=== PATIENT | male | born 1940 | race Caucasian/White ===

== ENCOUNTER → 2017-02-04 | Outpatient (CLI) | payer OTHER | END | disposition home or self-care (01) | LOC: GMAJ 10:18 | PROVIDERS: ATTEND Family Medicine | DX: M06.9 Rheumatoid arthritis, unspecified (principal) ==

== ENCOUNTER → 2017-06-06 | Outpatient (CLI) | payer OTHER ==
--- NOTE | 2017-06-06 18:50 | US ---
EXAM DESCRIPTION: Venous,Lower Extremity RT CLINICAL HISTORY: RIGHT LOWER LIMB EDEMA COMPARISON: None Available. TECHNIQUE: Right lower extremity venous duplex FINDINGS: There is no DVT identified. There is normal color flow observed with good flow augmentation. All deep veins compress normally. IMPRESSION: Negative for DVT Electronically signed by: Peewee Grande MD 06/06/2017 6:49 PM CDT
== END | disposition home or self-care (01) ==
LOC: US 09:48
PROVIDERS: ATTEND Family Medicine
DX: R60.0 Localized edema (principal)

== ENCOUNTER → 2017-09-26 | Outpatient (CLI) | payer OTHER | END | disposition home or self-care (01) | LOC: GMAJ 11:23 | PROVIDERS: ATTEND Family Medicine | DX: Z12.5 Encounter for screening for malignant neoplasm of prostate (principal) ==

== ENCOUNTER → 2018-01-19 | Outpatient (CLI) | payer OTHER ==
--- NOTE | 2018-01-19 10:37 | RAD ---
EXAM DESCRIPTION: Knee,Right 2 or More Views CLINICAL HISTORY: 77 years, Male, PAIN COMPARISON: None TECHNIQUE: Three views of the right knee including standing views FINDINGS: No fracture or dislocation. Bones appear normally mineralized with normal trabecular pattern. Narrowed appearance of the medial compartment on frontal view. Minimal medial and lateral joint line spurring with spurring in the intercondylar notch. Lateral view shows normal position of the patella. Mild posterior patellar spurring. Small to moderate suprapatellar knee joint effusion. Normal contour of quadriceps and patellar tendons. No abnormal patellar tilt or subluxation on patellar sunrise view. Prominent posterior spurring of the patella is seen laterally. IMPRESSION: Degenerative changes as described. Electronically signed by: Hugh Terrell MD 01/19/2018 10:36 AM CDT
--- NOTE | 2018-01-19 10:38 | RAD ---
EXAM DESCRIPTION: Pelvis CLINICAL HISTORY: 77 years Male, PAIN COMPARISON: None. TECHNIQUE: Frontal x-ray view of the pelvis FINDINGS: Mild degenerative narrowing of the inferomedial hip joints with acetabular marginal osteophyte formation. Mild spurring at the femoral head neck junctions. Enthesopathy at the ischia and iliac wings is noted bilaterally. No fracture of the bones of the pelvic ring. Degenerative changes are seen at the SI joints. Sacrum appears intact. IMPRESSION: Degenerative changes as described. Electronically signed by: Hugh Terrell MD 01/19/2018 10:37 AM CDT
== END | disposition home or self-care (01) ==
LOC: RAD 08:08
PROVIDERS: ATTEND Orthopaedic Surgery
DX: M25.561 Pain in right knee (principal); M25.551 Pain in right hip

== ENCOUNTER → 2018-04-17 | Outpatient (CLI) | payer OTHER ==
--- NOTE | 2018-04-17 09:07 | RAD ---
EXAM DESCRIPTION: Fingers,Left CLINICAL HISTORY: 77 years Male, PAIN IN left FINGERS COMPARISON: None. 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 Lesser degenerative narrowing of the PIP joint is present. No acute fracture. Degenerative spurring is prominent ventrally and dorsally on the lateral view. 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 Electronically signed by: Hugh Terrell MD 04/17/2018 9:06 AM CDT
== END ==
LOC: RAD 08:47
PROVIDERS: ATTEND Orthopaedic Surgery
DX: M79.645 Pain in left finger(s) (principal)

== ENCOUNTER → 2018-04-28 | Outpatient (CLI) | payer OTHER ==
--- NOTE | 2018-04-28 13:21 | US ---
THYROID ULTRASOUND CLINICAL INFORMATION: Thyroid nodule TECHNIQUE: Sonography of the thyroid glands was performed. Nodules are measured. COMPARISON: None FINDINGS: Thyroid size: Right thyroid lobe measures 4.5 x 2 x 2 cm. Left thyroid lobe measures 4.7 x 1.6 x 1.5 cm. Texture: Hyperechoic gland with coarse in texture. The normal echogenic parenchyma is interrupted by multiple nodular lesions. Estimated total number of nodules >/=1 cm: 2 Nodules Right lobe In the upper right lobe anteriorly, a hypoechoic inhomogeneous nodule measures 0.8 x 0.5 x 0.7 cm. At this size, this can be followed. Normal color flow in the gland without hyperemia of the nodule. In the lower right lobe posteriorly, another similar nodule is inhomogeneous and somewhat hypoechoic and measures 0.7 x 1 x 0.8 cm. This can be followed. No internal microcalcifications. Thyroid isthmus appears normal measuring 3 mm. Left lobe The largest nodule is seen in the upper left thyroid lobe which measures 2 x 1.3 x 1.2 cm. Fine-needle aspiration biopsy with ultrasound guidance is recommended for a nodule of this size. Positive color flow is seen within the nodule, similar to the adjacent thyroid tissue. In the inferior left thyroid lobe a hypoechoic inhomogeneous nodule is seen which measures 1.2 x 0.8 x 0.9 cm. No definite internal calcifications to suggest the need for biopsy at this size. While the upper pole left thyroid nodule could be further evaluated with biopsy, the other nodules could be followed with repeat sonography in one year. Impression: Bilateral thyroid nodules, the largest in the upper pole of the left thyroid lobe. Further evaluation with biopsy is recommended. Electronically signed by: Hugh Terrell MD 04/28/2018 1:19 PM CDT
== END ==
LOC: US 08:57
PROVIDERS: ATTEND Family Medicine
DX: E04.1 Nontoxic single thyroid nodule (principal)

== ENCOUNTER → 2018-12-20 | Day surgery (SDC) | payer OTHER ==
[~2018-12-20] MED LIST: LACTATED RINGERS 1,000 ML ONE; LIDOCAINE 1% 10 ML VIAL INJ ONE; PROPOFOL 200 MG/20 ML VIAL IV ONE
--- NOTE | 2018-12-20 13:26 | OP ---
DATE OF PROCEDURE: 12/20/18 DATE OF PROCEDURE: 12/20/18 PREPROCEDURE DIAGNOSIS: 1. Colorectal cancer screening. POSTPROCEDURE DIAGNOSIS: 1. Severe diverticulosis in the entire colon. PROCEDURE: 1. Colonoscopy. SURGEON: Bryon Mayes MD COMPLICATIONS: No immediate complications. SEDATION: The patient was sedated via IV propofol by the Anesthesia Department. CONSENT: Prior to the procedure, risks, benefits and alternatives to the therapy were discussed with the patient. The risks included bleeding, infection, perforation and . The patient agreed to the procedure and signed a consent. PREPROCEDURE ANESTHESIA ASSESSMENT: Mallampati class type 2, ASA grade assessment type 2. Throughout the procedure, the patient's vital signs were closely monitored. PROCEDURE: The patient was placed in the left lateral decubitus position and a rectal examination was performed. The rectal examination was within normal limits. The Olympus colonoscope was passed in the anus, rectum, traversing the colon to the level of the cecum as identified by the appendiceal orifice and the ileocecal valve. The scope was retracted and the mucosa was visualized. The entirety of the exam was performed under direct visualization. Preparation quality was excellent. The withdrawal time was greater than 6 minutes. The patient tolerated the procedure well. FINDINGS: 1. Diverticulosis was found throughout the colon. Significantly, however, severe diverticulosis was found in the sigmoid and descending colon. 2. The rest of the examination was entirely normal. RECOMMENDATION: 1. Return the patient home. 2. Resume previous diet favoring high-fiber foods. 3. Start Citrucel 2 tablespoons a day. 4. Repeat colonoscopy in 10 years. 5. Primary care physician may check FIT/Cologuard in 3 to 5 years' time. 6. Return to referring physicians office as previously scheduled. 7. Return to my office p.r.n. 8. Findings were discussed with the patient and family members. #[id number] MTDD
[2018-12-20 14:37] VITALS: BP 134/78; TEMP 97.1; O2SAT 98
== END ==
LOC: AMB 05:33
PROVIDERS: ATTEND Internal Medicine Gastroenterology
DX: Z12.11 Encounter for screening for malignant neoplasm of colon (principal); K57.30 Diverticulosis of large intestine without perforation or abscess without bleeding; I10 Essential (primary) hypertension; G47.33 Obstructive sleep apnea (adult) (pediatric); M35.3 Polymyalgia rheumatica; K21.9 Gastro-esophageal reflux disease without esophagitis; Z86.010 Personal history of colon polyps; Z91.048 Other nonmedicinal substance allergy status; Z79.01 Long term (current) use of anticoagulants; Z79.899 Other long term (current) drug therapy
CPT/HCPCS: 00812; G0105; J3490; J7120

== ENCOUNTER 2019-02-07 15:22 | Emergency (ER) | payer OTHER ==
[2019-02-07 15:50] VITALS: TEMP 97.1
--- NOTE | 2019-02-07 16:12 | ED.PDOC ---
History of Present Illness - General Chief Complaint: General Stated Complaint: weakness, malaise, post hernia repair Time Seen by Provider: 02/07/19 15:42 Source: patient, RN notes reviewed, Vital Signs reviewed, family - History of Present Illness Initial Comments: s/p hiatal hernia surgery a week ago continues to feel fatigued & isn't sure he should be feeling this tired. Has been on a liquid diet. No complications with his wounds or unusual pain. His is concerned that he isn't engaging ("tracking") in conversations with her. He says he isn't in the mood to be talking today. No focal neuro symptoms. Timing/Duration: 1 week Severity: moderate Improving Factors: nothing Worsening Factors: nothing Associated Symptoms: denies symptoms Allergies/Adverse Reactions: Allergies NO KNOWN ALLERGY Allergy (Verified 02/07/19 15:27) Home Medications: Ambulatory Orders Fenofibrate [Tricor] 145 mg PO DAILY 12/13/18 RX: Amlodipine Besylate 10 mg PO DAILY 12/13/18 RX: Finasteride 5 mg PO DAILY 12/13/18 RX: Gabapentin 100 mg PO BEDTIME 12/13/18 RX: Leflunomide 10 mg PO DAILY 12/13/18 RX: Metoprolol Tartrate 12.5 mg PO BID 12/13/18 RX: Prednisone 5 mg PO DAILY 12/13/18 Rivaroxaban [Xarelto] 10 mg PO DAILY 12/13/18 Ranitidine HCl [Ranitidine 75] 75 mg PO BID 02/07/19 Review of Systems - Review of Systems Constitutional: States: no symptoms reported EENTM: States: no symptoms reported Respiratory: States: no symptoms reported Cardiology: States: no symptoms reported Gastrointestinal/Abdominal: States: no symptoms reported Genitourinary: States: no symptoms reported Musculoskeletal: States: no symptoms reported Skin: States: no symptoms reported Neurological: States: see HPI Hematologic/Lymphatic: States: no symptoms reported Past Medical History (General) - Patient Medical History Hx Stroke: No Hx Cardiac Disorders: Yes - atrial fib, ablation x2 Hx Congestive Heart Failure: No Hx Hypertension: Yes Hx Thyroid Disease: No Hx Diabetes: No Hx MRSA: No Surgical History: appendectomy, other - Social History Hx Tobacco Use: No Family Medical History - Family History Father Family History: Unknown Physical Exam - Physical Exam General Appearance: Alert, Comfortable, No apparent distress, Other - sitting on the side of the bed reading a book Eye Exam: bilateral normal Ears, Nose, Throat: hearing grossly normal, normal ENT inspection Neck: full range of motion, supple, normal inspection Respiratory: lungs clear, normal breath sounds, no respiratory distress Cardiovascular/Chest: regular rate, rhythm, no edema, no gallop Gastrointestinal/Abdominal: soft, no organomegaly, other - operative sites appear to be healing normally Extremity: normal range of motion, normal inspection, no pedal edema, normal capillary refill Neurologic: db2 developer II-XII nml as tested, no motor/sensory deficits, alert, normal mood/affect, oriented x 3 Skin Exam: normal color, warm/dry Progress - Progress Progress: 02/07/19 18:57 Spoke with his surgeon's nurse. They will call him tomorrow. - Results/Orders Results/Orders: BUN:Cr 22 Hgb 12 - EKG/XRAY/CT EKG: Sinus, no ST T wave changes - NSR @ 63; nml axis, intervals, QRS, ST segments & T waves - Consult/PCP Time Called: 16:32 Consult/PCP: Dr. Doan - his surgeon Departure - Departure Clinical Impression: Weakness Time of Disposition: 16:34 Disposition: Discharge to Home or Self Care Condition: Good Departure Forms: ED Discharge - Pt. Copy, Patient Portal Self Enrollment Home Medications: Ambulatory Orders Fenofibrate [Tricor] 145 mg PO DAILY 12/13/18 RX: Amlodipine Besylate 10 mg PO DAILY 12/13/18 RX: Finasteride 5 mg PO DAILY 12/13/18 RX: Gabapentin 100 mg PO BEDTIME 12/13/18 RX: Leflunomide 10 mg PO DAILY 12/13/18 RX: Metoprolol Tartrate 12.5 mg PO BID 12/13/18 RX: Prednisone 5 mg PO DAILY 12/13/18 Rivaroxaban [Xarelto] 10 mg PO DAILY 12/13/18 Ranitidine HCl [Ranitidine 75] 75 mg PO BID 02/07/19 Additional Instructions: Dr. Doan or his nurse will call you tomorrow.
[2019-02-07 16:45] VITALS: BP 142/76; O2SAT 98
== END 2019-02-07 16:45 | disposition home or self-care (01) ==
LOC: ER 15:22
DX: R53.1 Weakness (principal); I48.91 Unspecified atrial fibrillation; I10 Essential (primary) hypertension; Z98.890 Other specified postprocedural states; Z79.899 Other long term (current) drug therapy

== ENCOUNTER → 2019-02-15 | Outpatient (CLI) | payer OTHER | LOC: SL 20:17 | PROVIDERS: ATTEND Family Medicine | DX: G47.33 Obstructive sleep apnea (adult) (pediatric) (principal); I10 Essential (primary) hypertension ==

== ENCOUNTER 2019-03-30 10:05 | Emergency (ER) | payer OTHER ==
--- NOTE | 2019-03-30 10:34 | ED.PDOC ---
History of Present Illness - General Chief Complaint: GI Problem Time Seen by Provider: 03/30/19 10:29 Information Source: patient - History of Present Illness Initial Comments: DIARRHEA X ONE WEEK, APPROX 5 EPISODES PERDAY ASSOCIATED WITH ABDOMINAL CRAMPS. 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 DENIES ANY FEVER, VOMITING SHAKES OR CHILLS. Abdominal Pain Onset Location: generalized abdomen Pain Radiation: no radiation Quality: mild Review of Systems - Review of Systems Constitutional: States: no symptoms reported EENTM: States: no symptoms reported Respiratory: States: no symptoms reported Cardiology: States: no symptoms reported Gastrointestinal/Abdominal: States: abdominal pain, diarrhea Musculoskeletal: States: no symptoms reported Skin: States: no symptoms reported Neurological: States: no symptoms reported Endocrine: States: no symptoms reported Hematologic/Lymphatic: States: no symptoms reported Past Medical History (General) - Patient Medical History Hx Seizures: No Hx Stroke: No Hx Dementia: No Hx Asthma: No Hx of COPD: No Hx Cardiac Disorders: Yes - A-Fib Hx Congestive Heart Failure: No Hx Pacemaker: No Hx Hypertension: Yes Hx Thyroid Disease: No Hx Diabetes: No Hx Gastroesophageal Reflux: No Hx Renal Disease: No Hx Cancer: No Hx of HIV: No Hx Hepatitis C: No Hx MRSA: No Surgical History: noncontributory, other - Vaccination History Hx Tetanus, Diphtheria Vaccination: Yes Hx Influenza Vaccination: Yes Hx Pneumococcal Vaccination: Yes Immunizations Up to Date: Yes - Social History Hx Tobacco Use: No Hx Alcohol Use: No Hx Substance Use: No Hx Substance Use Treatment: No Hx Depression: No Feels Threatened In Home Enviroment: No Feels Threatened In a Relationship: No Hx Physical Abuse: No Hx Emotional Abuse: No Hx Suspected Abuse: No - Triage Comment ED Triage Comment: Pt c/o diarrhea for 5 days. Family Medical History - Family History Father Family History: Unknown Living Status: Hx Family Hypertension: Yes Hx Cardiac Disease: Yes Physical Exam - Physical Exam General Appearance: Alert, Well Developed, Well Groomed, Well Hydrated, Well N ourished Eyes, Ears, Nose, Throat Exam: PERRL/EOMI Neck: non-tender Respiratory: chest non-tender Cardiovascular/Chest: normal peripheral pulses, regular rate, rhythm, no edema, no gallop, no JVD Gastrointestinal/Abdominal: normal bowel sounds Extremity: normal range of motion Neurologic: no motor/sensory deficits Progress - Progress Progress: 03/30/19 14:55 FINALLY GOT A STOOL SAMPLE-WAITING FOR RESULTS - Results/Orders Results/Orders: 03/30/19 14:01 CLOSTRIDIUM DIFFICILE AG/TOXIN Stat Fecal Leukocyte [FECAL WBC LEUKO EZ OLYA] Stat STOOL CULTURE Stat CRYPTOSPORIDIA AG,STOOL Stat Laboratory Results WBC 4.4 K/mm3 (4.8-10.8) L 03/30/19 10:44 RBC 3.62 M/mm3 (4.70-6.10) L 03/30/19 10:44 Hgb 11.5 gm/dL (14.0-18.0) L 03/30/19 10:44 Hct 34.5 % (42.0-52.0) L 03/30/19 10:44 MCV 95.3 fl (80.0-94.0) H 03/30/19 10:44 MCH 31.9 pg (27.0-31.0) H 03/30/19 10:44 MCHC 33.5 g/dL (33.0-37.0) 03/30/19 10:44 RDW 14.5 % (11.5-14.5) 03/30/19 10:44 Plt Count 228 K/mm3 (130-400) 03/30/19 10:44 MPV 8.9 fl (7.40-10.4) 03/30/19 10:44 Absolute Neuts (auto) 3.40 K/uL (1.8-6.8) 03/30/19 10:44 Absolute Lymphs (auto) 0.40 K/uL (1.0-3.4) L 03/30/19 10:44 Absolute Monos (auto) 0.50 K/uL (0.2-0.8) 03/30/19 10:44 Absolute Eos (auto) 0.00 K/uL (0.0-0.4) 03/30/19 10:44 Absolute Basos (auto) 0.00 K/uL (0.0-0.1) 03/30/19 10:44 Neutrophils % 77.1 % (42.0-78.0) 03/30/19 10:44 Lymphocytes % 10.0 % (20.0-50.0) L 03/30/19 10:44 Monocytes % 12.1 % (2.0-9.0) H 03/30/19 10:44 Eosinophils % 0.5 % (1.0-5.0) L 03/30/19 10:44 Basophils % 0.3 % (0.0-2.0) 03/30/19 10:44 Sodium 139 mmol/L (135-145) 03/30/19 10:44 Potassium 4.2 mmol/L (3.6-5.0) 03/30/19 10:44 Chloride 106 mmol/L (101-111) 03/30/19 10:44 Carbon Dioxide 26 mmol/L (21-31) 03/30/19 10:44 Anion Gap 11.2 (12-18) L 03/30/19 10:44 BUN 19 mg/dL (7-18) H 03/30/19 10:44 Creatinine 0.59 mg/dL (0.6-1.3) L 03/30/19 10:44 BUN/Creatinine Ratio 32.2 (10-20) H 03/30/19 10:44 Random Glucose 96 mg/dL (70-105) 03/30/19 10:44 Serum Osmolality 279.7 mOsm/L (275-295) 03/30/19 10:44 Calcium 8.5 mg/dL (8.4-10.2) 03/30/19 10:44 Total Bilirubin 0.6 mg/dL (0.2-1.0) 03/30/19 10:44 AST 25 IU/L (10-42) 03/30/19 10:44 ALT 23 IU/L (10-60) 03/30/19 10:44 Alkaline Phosphatase 25 IU/L (42-121) L 03/30/19 10:44 Serum Total Protein 5.9 gm/dL (6.4-8.2) L 03/30/19 10:44 Albumin 3.6 g/dl (3.2-5.5) 03/30/19 10:44 Globulin 2.3 gm/dL (2.3-3.5) 03/30/19 10:44 Albumin/Globulin Ratio 1.6 (1.1-1.9) 03/30/19 10:44 Urine Color Yellow (Yellow) 03/30/19 10:55 Urine Appearance Clear (Clear) 03/30/19 10:55 Urine pH 7.0 (4.5-7.8) 03/30/19 10:55 Ur Specific Organ 1.020 (1.005-1.030) 03/30/19 10:55 Urine Protein Negative mg/dL 03/30/19 10:55 FECAL GLORIA Urine Glucose (UA) Negative mg/dL (Negative) 03/30/19 10:55 Urine Ketones Negative mg/dL (NEGATIVE) 03/30/19 10:55 Urine Blood Negative (Negative) 03/30/19 10:55 Urine Nitrite Negative 03/30/19 10:55 Urine Bilirubin Negative (NEGATIVE) 03/30/19 10:55 Urine Urobilinogen 0.2 mg/dL (0.2-1.0) 03/30/19 10:55 Ur Leukocyte Esterase Negative (Negative) 03/30/19 10:55 Urine RBC 0 /hpf 03/30/19 10:55 Urine WBC 0 /hpf 03/30/19 10:55 Ur Epithelial Cells 1-3 /hpf 03/30/19 10:55 Urine Bacteria 0 03/30/19 10:55 FECAL LEUKOCYTES: POSITIVE Departure - Departure Clinical Impression: Acute diarrhea Time of Disposition: 15:23 Disposition: Discharge to Home or Self Care Condition: Good Departure Forms: ED Discharge - Pt. Copy, Patient Portal Self Enrollment Diet: resume usual diet Referrals: Minor Estevez MD [Primary Care Provider] - 1-2 Weeks Prescriptions: Sulfamethoxazole-Trimethoprim [Bactrim Ds 800-160 mg] 1 tab PO BID #20 tab Home Medications: Ambulatory Orders Amlodipine Besylate 10 mg PO DAILY 12/13/18 Fenofibrate [Tricor] 145 mg PO DAILY 12/13/18 Finasteride 5 mg PO DAILY 12/13/18 Gabapentin 100 mg PO BEDTIME 12/13/18 Leflunomide 20 mg PO DAILY 12/13/18 Metoprolol Tartrate 12.5 mg PO BID 12/13/18 Rivaroxaban [Xarelto] 20 mg PO DAILY 12/13/18 Specialty Vitamins Products [Collagen Ultra] 2 cap PO DAILY 03/30/19 Sulfamethoxazole-Trimethoprim [Bactrim Ds 800-160 mg] 1 tab PO BID #20 tab 03/30/19
[2019-03-30 15:36] VITALS: BP 130/62; TEMP 97.9; O2SAT 96
== END 2019-03-30 15:36 | disposition home or self-care (01) ==
LOC: ER 10:05
DX: R19.7 Diarrhea, unspecified (principal); I48.91 Unspecified atrial fibrillation; I10 Essential (primary) hypertension; M35.3 Polymyalgia rheumatica; Z79.52 Long term (current) use of systemic steroids

== ENCOUNTER → 2019-04-11 | Outpatient (CLI) | payer OTHER | LOC: LAB.O 08:54 | PROVIDERS: ATTEND Family Medicine | DX: R19.7 Diarrhea, unspecified (principal) ==

== ENCOUNTER → 2019-05-03 | Outpatient (CLI) | payer OTHER | LOC: GMAJ 10:34 | PROVIDERS: ATTEND Family Medicine | DX: Z12.5 Encounter for screening for malignant neoplasm of prostate (principal) ==

== ENCOUNTER → 2019-08-08 | Outpatient (CLI) | payer OTHER | LOC: GMAJ 14:22 | PROVIDERS: ATTEND Family Medicine | DX: Z79.899 Other long term (current) drug therapy (principal) ==

== ENCOUNTER → 2019-11-05 | Outpatient (CLI) | payer OTHER | LOC: GMAJ 10:43 | PROVIDERS: ATTEND Family Medicine | DX: M60.89 Other myositis, multiple sites (principal) ==

== ENCOUNTER 2020-05-08 09:13 | Emergency (ER) | payer OTHER ==
[2020-05-08 09:29] VITALS: BP 143/76
--- NOTE | 2020-05-08 09:32 | ED.PDOC ---
History of Present Illness - General Time Seen by Provider: 05/08/20 09:26 Source: patient, RN notes reviewed, Vital Signs reviewed Exam Limitations: no limitations - History of Present Illness Initial Comments: Patient is a 79-year-old male on Xarelto who presents with right leg injury. States about 2 hours ago he hit his right lower leg on a stump causing a skin tear to the anterior tib-fib area. Had bleeding initially and called EMS who wrapped the area and bleeding resolved. States he has been able to walk without difficulty and has no pain, came to ED for concern that this might need stitches. His last tetanus shot was 2 to 3 years ago. He denies any other injuries or concerns at this time. Allergies/Adverse Reactions: Allergies NO KNOWN ALLERGY Allergy (Verified 05/08/20 09:33) Home Medications: Ambulatory Orders Amlodipine Besylate 10 mg PO DAILY 12/13/18 Fenofibrate [Tricor] 145 mg PO DAILY 12/13/18 Finasteride 5 mg PO DAILY 12/13/18 Gabapentin 100 mg PO BEDTIME 12/13/18 Leflunomide 20 mg PO DAILY 12/13/18 Metoprolol Tartrate 12.5 mg PO BID 12/13/18 Rivaroxaban [Xarelto] 20 mg PO DAILY 12/13/18 Specialty Vitamins Products [Collagen Ultra] 2 cap PO DAILY 03/30/19 Review of Systems - Review of Systems Constitutional: Denies: chills, fever, weakness EENTM: Denies: nose congestion, throat pain Respiratory: Denies: cough, short of breath Cardiology: Denies: chest pain, palpitations, syncope Gastrointestinal/Abdominal: Denies: diarrhea, nausea, vomiting Musculoskeletal: Denies: back pain, muscle pain Skin: States: see HPI Neurological: Denies: headache, paresthesia All other Systems: Reviewed and Negative Past Medical History (General) - Patient Medical History Hx Seizures: No Hx Stroke: No Hx Dementia: No Hx Asthma: No Hx of COPD: No Hx Cardiac Disorders: Yes - A-Fib Hx Congestive Heart Failure: No Hx Pacemaker: No Hx Hypertension: Yes Hx Thyroid Disease: No Hx Diabetes: No Hx Gastroesophageal Reflux: No Hx Renal Disease: No Hx Cancer: No Hx of HIV: No Hx Hepatitis C: No Hx MRSA: No - Vaccination History Hx Tetanus, Diphtheria Vaccination: Yes Hx Influenza Vaccination: Yes Hx Pneumococcal Vaccination: Yes - Social History Hx Tobacco Use: No Hx Alcohol Use: No Hx Substance Use: No Hx Substance Use Treatment: No Hx Depression: No Hx Physical Abuse: No Hx Emotional Abuse: No Hx Suspected Abuse: No Family Medical History - Family History Father Family History: Unknown Living Status: Hx Family Hypertension: Yes Hx Cardiac Disease: Yes Physical Exam - Physical Exam General Appearance: Alert, Comfortable, No apparent distress Respiratory: chest non-tender, lungs clear, normal breath sounds, no respiratory distress Cardiovascular/Chest: normal peripheral pulses, regular rate, rhythm Gastrointestinal/Abdominal: non tender, soft, no pulsatile mass Extremity: other - Full range of motion in all extremities. There is no bony tenderness to the right lower extremity. Skin Exam: other - There is a 4 cm vertical superficial skin tear to the right anterior mid tib-fib area. No active bleeding. No surrounding erythema. No bony tenderness on exam. He has full range of motion without difficulty. 2+ dorsalis pedis and posterior tibial pulses. Progress - Progress Progress: 05/08/20 09:34 Patient presents for skin tear to right lower leg that occurred approximately 2 hours ago. Tetanus is up-to-date. On exam there is no active bleeding. The wound is vertical and superficial. I have discussed with patient that placing sutures will likely pull-through a thin flap of skin. I have irrigated and will approximate with tissue adhesive. Wound care instructions given and he will follow-up with his primary care doctor in 1 to 2 days for continued evaluation. Procedures - Laceration/Wound Repair Right Anterior Calf Wound Length (cm): 4 Wound's Depth, Shape: superficial, linear Wound Explored: clean Irrigated w/ Saline (cc's): 250 Wound Repaired With: dermabond Progress: Wound irrigated and cleaned. Thin flap of skin approximated with dermabond Departure - Departure Clinical Impression: Leg laceration Qualifiers: Encounter type: initial encounter Laterality: right Qualified Code(s): S81.811A - Laceration without foreign body, right lower leg, initial encounter Time of Disposition: 10:05 Disposition: Discharge to Home or Self Care Condition: Good Instructions: Laceration Repair With Glue (DC) Activity: increase activity as tolerated Referrals: Minor Estevez MD [Primary Care Provider] - 1-2 Days Home Medications: Ambulatory Orders Amlodipine Besylate 10 mg PO DAILY 12/13/18 Fenofibrate [Tricor] 145 mg PO DAILY 12/13/18 Finasteride 5 mg PO DAILY 12/13/18 Gabapentin 100 mg PO BEDTIME 12/13/18 Leflunomide 20 mg PO DAILY 12/13/18 Metoprolol Tartrate 12.5 mg PO BID 12/13/18 Rivaroxaban [Xarelto] 20 mg PO DAILY 12/13/18 Specialty Vitamins Products [Collagen Ultra] 2 cap PO DAILY 03/30/19 Additional Instructions: Keep wound dry for the next 24 hours. After that, you can get a small amount of water on the area while showering. Keep the area clean and dry.
[2020-05-08 10:24] VITALS: TEMP 97.2; O2SAT 96
== END 2020-05-08 10:15 | disposition home or self-care (01) ==
LOC: ER 09:13
DX: S81.811A Laceration without foreign body, right lower leg, initial encounter (principal); I48.91 Unspecified atrial fibrillation; I10 Essential (primary) hypertension; W45.8XXA Other foreign body or object entering through skin, initial encounter; Z79.01 Long term (current) use of anticoagulants; Y92.9 Unspecified place or not applicable

== ENCOUNTER 2020-05-09 06:36 | Emergency (ER) | payer OTHER ==
--- NOTE | 2020-05-09 06:54 | ED.PDOC ---
History of Present Illness - General Chief Complaint: Laceration Time Seen by Provider: 05/09/20 06:48 Source: patient, RN notes reviewed, Vital Signs reviewed, family Exam Limitations: no limitations - History of Present Illness Initial Comments: Patient is a 79-year-old man who was seen in ED yesterday morning for a right lower leg skin tear after hitting it on a stump. Was seen in ED and had wound irrigated and Dermabond applied to seal the skin flap. States he rested most of the day yesterday and then whenever he woke up this morning he noticed bleeding around the site. He denies any new trauma or accidentally hitting the area. Allergies/Adverse Reactions: Allergies NO KNOWN ALLERGY Allergy (Verified 05/08/20 09:33) Home Medications: Ambulatory Orders Amlodipine Besylate 10 mg PO DAILY 12/13/18 Fenofibrate [Tricor] 145 mg PO DAILY 12/13/18 Finasteride 5 mg PO DAILY 12/13/18 Gabapentin 100 mg PO BEDTIME 12/13/18 Leflunomide 20 mg PO DAILY 12/13/18 Metoprolol Tartrate 12.5 mg PO BID 12/13/18 Rivaroxaban [Xarelto] 20 mg PO DAILY 12/13/18 Specialty Vitamins Products [Collagen Ultra] 2 cap PO DAILY 03/30/19 Review of Systems - Review of Systems Constitutional: Denies: chills, fever EENTM: Denies: nose congestion, throat pain Respiratory: Denies: cough, short of breath Cardiology: Denies: chest pain, palpitations, syncope Gastrointestinal/Abdominal: Denies: abdominal pain, nausea, vomiting Musculoskeletal: Denies: back pain, joint pain, joint swelling Skin: States: see HPI All other Systems: Reviewed and Negative Past Medical History (General) - Patient Medical History Hx Seizures: No Hx Stroke: No Hx Dementia: No Hx Asthma: No Hx of COPD: No Hx Cardiac Disorders: Yes - A-Fib Hx Congestive Heart Failure: No Hx Pacemaker: No Hx Hypertension: Yes Hx Thyroid Disease: No Hx Diabetes: No Hx Gastroesophageal Reflux: No Hx Renal Disease: No Hx Cancer: No Hx of HIV: No Hx Hepatitis C: No Hx MRSA: No - Vaccination History Hx Tetanus, Diphtheria Vaccination: Yes Hx Influenza Vaccination: Yes Hx Pneumococcal Vaccination: Yes - Social History Hx Tobacco Use: No Hx Alcohol Use: No Hx Substance Use: No Hx Substance Use Treatment: No Hx Depression: No Hx Physical Abuse: No Hx Emotional Abuse: No Hx Suspected Abuse: No Family Medical History - Family History Father Family History: Unknown Living Status: Hx Family Hypertension: Yes Hx Cardiac Disease: Yes Physical Exam - Physical Exam General Appearance: Alert, Comfortable, No apparent distress Respiratory: chest non-tender, lungs clear, normal breath sounds, no respiratory distress Cardiovascular/Chest: regular rate, rhythm Gastrointestinal/Abdominal: non tender, soft Extremity: normal range of motion, non-tender, no pedal edema Skin Exam: other - There is a 4 cm, vertical skin tear to the right anterior lateral lower leg. Dermabond has been applied. There is a small area that is oozing blood on the lateral portion in the midportion of the skin tear. No open wound seen. Progress - Progress Progress: 05/09/20 07:05 Small amount of Dermabond applied to right leg wound with hemostasis achieved. Dermabond allowed to dry and nonadherent wound dressing was placed. Will leave in place for 12 hours then remove. I have recommended he follow-up with his PCP in 1 to 2 days for recheck. Strict return precautions given. Departure - Departure Clinical Impression: Skin tear Time of Disposition: 07:06 Disposition: Discharge to Home or Self Care Condition: Good Departure Forms: ED Discharge - Pt. Copy, Patient Portal Self Enrollment Instructions: DI for Laceration Repair, Laceration Repair With Glue (DC) Diet: resume usual diet Activity: increase activity as tolerated Referrals: Minor Estevez MD [Primary Care Provider] - 1-2 Days Home Medications: Ambulatory Orders Amlodipine Besylate 10 mg PO DAILY 12/13/18 Fenofibrate [Tricor] 145 mg PO DAILY 12/13/18 Finasteride 5 mg PO DAILY 12/13/18 Gabapentin 100 mg PO BEDTIME 12/13/18 Leflunomide 20 mg PO DAILY 12/13/18 Metoprolol Tartrate 12.5 mg PO BID 12/13/18 Rivaroxaban [Xarelto] 20 mg PO DAILY 12/13/18 Specialty Vitamins Products [Collagen Ultra] 2 cap PO DAILY 03/30/19 Additional Instructions: Keep dressing in place for 12 hours then removed tonight.
[2020-05-09 07:01] VITALS: TEMP 97.4; O2SAT 97
[2020-05-09 07:46] VITALS: BP 144/75
== END 2020-05-09 07:20 | disposition home or self-care (01) ==
LOC: ER 06:36
DX: S81.811D Laceration without foreign body, right lower leg, subsequent encounter (principal); I48.91 Unspecified atrial fibrillation; I10 Essential (primary) hypertension; W45.8XXD Other foreign body or object entering through skin, subsequent encounter; Z79.01 Long term (current) use of anticoagulants; Z79.899 Other long term (current) drug therapy

== ENCOUNTER → 2020-05-29 | Outpatient (CLI) | payer OTHER ==
--- NOTE | 2020-05-29 16:05 | RAD ---
EXAM DESCRIPTION: Pelvis CLINICAL HISTORY: HIP PAIN COMPARISON: 19 January 2018 TECHNIQUE: AP pelvis FINDINGS: Mild acetabular osteophyte formation is observed in both hips. No fracturing is detected. Mild sacroiliac joint arthritis is also observed. Mild degenerative changes are observed in the lower lumbar spine. IMPRESSION: Mild degenerative changes are observed. No fracturing is detected. Electronically signed by: Peewee Grande MD 05/29/2020 4:04 PM CDT
--- NOTE | 2020-05-29 16:07 | RAD ---
EXAM DESCRIPTION: Knee,Right Complete CLINICAL HISTORY: KNEE PAIN COMPARISON: 19 January 2018 TECHNIQUE: 4 views right FINDINGS: Mild loss of medial joint space is observed. Medial tibial osteophyte formation is noted. Mild patellofemoral joint arthritis is also observed. No joint effusion is seen. No fracture is detected. IMPRESSION: Degenerative changes are observed in the medial joint compartment and patellofemoral joint. Electronically signed by: Peewee Grande MD 05/29/2020 4:05 PM CDT
== END ==
LOC: RAD 08:48
PROVIDERS: ATTEND Orthopaedic Surgery
DX: M47.898 Other spondylosis, sacral and sacrococcygeal region (principal); M47.896 Other spondylosis, lumbar region; M17.11 Unilateral primary osteoarthritis, right knee

== ENCOUNTER → 2020-08-04 | Outpatient (CLI) | payer OTHER | LOC: GMAJ 10:33 | PROVIDERS: ATTEND Family Medicine | DX: L80 Vitiligo (principal) ==

== ENCOUNTER → 2020-08-22 | Outpatient (CLI) | payer OTHER ==
--- NOTE | 2020-08-23 15:17 | RAD ---
EXAM DESCRIPTION: Hip,Right 2 Views (accession [id number]), Pelvis (accession [id number]): CR/DR/XR CLINICAL HISTORY: 80 years Male HIP PAIN COMPARISON: X-ray pelvis May 29. TECHNIQUE: Two Views. AP neutral AP ABDuction. One view AP pelvis. FINDINGS: Overall bone density is decreased. Narrowing inferior medial hip joint. Hypertrophic bone superior lateral right acetabulum. No fracture or dislocation. Enthesophytes iliac crests, initial tuberosities, and greater trochanters. Separation of hypertrophic spur superior-lateral left acetabulum. Narrowing of the inferior medial left hip joint space. Arthrosis bilateral SI joints more on the right.. IMPRESSION: Enthesophytes on the pelvic bone and bilateral hypertrophic spurs on the acetabula stable since the prior study. Small fissure is seen in the left spur. Bilateral inferior medial joint spaces are narrowed. Bilateral SI joint arthrosis is stable. Electronically signed by: Hilario Vergara MD 08/23/2020 3:15 PM [facility]
--- NOTE | 2020-08-23 15:17 | RAD ---
EXAM DESCRIPTION: Hip,Right 2 Views (accession [id number]), Pelvis (accession [id number]): CR/DR/XR CLINICAL HISTORY: 80 years Male HIP PAIN COMPARISON: X-ray pelvis May 29. TECHNIQUE: Two Views. AP neutral AP ABDuction. One view AP pelvis. FINDINGS: Overall bone density is decreased. Narrowing inferior medial hip joint. Hypertrophic bone superior lateral right acetabulum. No fracture or dislocation. Enthesophytes iliac crests, initial tuberosities, and greater trochanters. Separation of hypertrophic spur superior-lateral left acetabulum. Narrowing of the inferior medial left hip joint space. Arthrosis bilateral SI joints more on the right.. IMPRESSION: Enthesophytes on the pelvic bone and bilateral hypertrophic spurs on the acetabula stable since the prior study. Small fissure is seen in the left spur. Bilateral inferior medial joint spaces are narrowed. Bilateral SI joint arthrosis is stable. Electronically signed by: Hilario Vergara MD 08/23/2020 3:15 PM [facility]
== END ==
LOC: RAD 07:49
PROVIDERS: ATTEND Orthopaedic Surgery
DX: M77.8 Other enthesopathies, not elsewhere classified (principal); M25.751 Osteophyte, right hip; M25.752 Osteophyte, left hip; M47.898 Other spondylosis, sacral and sacrococcygeal region

== ENCOUNTER → 2020-10-03 | Outpatient (CLI) | payer OTHER | LOC: GMAJ 10:34 | PROVIDERS: ATTEND Family Medicine | DX: Z31.448 Encounter for other genetic testing of male for procreative management (principal); M06.9 Rheumatoid arthritis, unspecified; I10 Essential (primary) hypertension ==